=== PATIENT | female | born 1940 | race Caucasian/White ===

== ENCOUNTER 2018-02-10 01:32 | Outpatient (CLI) | payer MEDICARE, BC, SELFPAY ==
[2018-02-10 11:26] LABS: Abs Immature Grans 0.01 k/cumm (0.0-0.09); Absolute Basophil Count 0.04 k/cumm (0.0-0.2); Absolute Eosinophil Count 0.17 k/cumm (0.0-0.7); Absolute Lymphocyte Count 1.03 k/cumm (1.2-3.4); Absolute Monocyte Count 0.48 k/cumm (0.11-0.7); Absolute Neutrophil Count 2.46 k/cumm (1.2-6.7); Eosinophils % 4.1; HCT 38.4 % (36.0-46.0); HGB 12.7 g/dL (12.0-15.5); Immature Grans % 0.2; Lymphocytes % 24.6; Mean Corp. HGB Concentration 33.1 g/dL (32.0-36.0); Mean Corpuscular Hemoglobin 31.8 pg (27.0-33.0); Monocytes % 11.5; Neutrophils % 58.6; Platelet Count 281 x1000/uL (130-400); RBC Distribution Width 12.4 % (11.7-14.6); White Blood Cell Count 4.19 k/cumm (4.4-10.8)
[2018-02-10 11:42] LABS: ALT 16 U/L (12-78); AST 15 U/L (15-37); Albumin 3.9 g/dL (3.4-5.0); Alkaline Phosphatase 80 U/L (46-116); Anion Gap 9.9 mmol/L (3-11); BUN 10 mg/dL (7-18); Bilirubin, Total 0.5 mg/dL (0.2-1.0); CO2 28.1 mmol/L (21.0-32.0); CREATININE 0.74 mg/dL (0.55-1.02); Calcium 9.5 mg/dL (8.5-10.1); Chloride 99 mmol/L (98-107); Glucose 92 mg/dL (70-100); Potassium 3.8 mmol/L (3.5-5.1); Sodium 137 mmol/L (136-145); Total Protein 6.6 g/dL (6.4-8.2)
== END 2018-02-10 01:52 ==
PROVIDERS: PCP Family Medicine; Visit Provider Family Medicine
DX: I10 Essential (primary) hypertension (principal); Z79.899 Other long term (current) drug therapy
CPT/HCPCS: 36415; 80053; 85025

== ENCOUNTER 2019-01-21 04:06 | Outpatient (CLI) | payer MEDICARE, BC, SELFPAY ==
[2019-01-21 10:52] LABS: Absolute Basophil Count 0.04 k/cumm (0.0-0.2); Absolute Eosinophil Count 0.15 k/cumm (0.0-0.7); Absolute Lymphocyte Count 0.94 k/cumm (1.2-3.4); Absolute Monocyte Count 0.57 k/cumm (0.11-0.7); Absolute Neutrophil Count 3.09 k/cumm (1.2-6.7); Basophils % 0.8; Eosinophils % 3.1; HCT 38.3 % (36.0-46.0); HGB 12.8 g/dL (12.0-15.5); Lymphocytes % 19.6; Mean Corp. HGB Concentration 33.4 g/dL (32.0-36.0); Mean Corpuscular Hemoglobin 31.8 pg (27.0-33.0); Mean Platelet Volume 10.9 fL (8.0-11.0); Monocytes % 11.9; Neutrophils % 64.6; Platelet Count 333 x1000/uL (130-400); RBC 4.03 m/cumm (4.00-5.20); RBC Distribution Width 12.3 % (11.7-14.6); White Blood Cell Count 4.79 k/cumm (4.4-10.8)
[2019-01-21 11:28] LABS: ALT 21 U/L (14-59); AST 15 U/L (15-37); Albumin 3.8 g/dL (3.4-5.0); Alkaline Phosphatase 77 U/L (46-116); Anion Gap 8.1 mmol/L (3-11); BUN 9 mg/dL (7-18); Bilirubin, Total 0.4 mg/dL (0.2-1.0); CO2 29.9 mmol/L (21.0-32.0); CREATININE 0.82 mg/dL (0.55-1.02); Calcium 9.3 mg/dL (8.5-10.1); Chloride 101 mmol/L (98-107); Glucose 90 mg/dL (70-100); Potassium 3.9 mmol/L (3.5-5.1); Sodium 139 mmol/L (136-145); Total Protein 6.7 g/dL (6.4-8.2)
== END 2019-01-21 04:26 ==
PROVIDERS: PCP Family Medicine; Visit Provider Family Medicine
DX: I10 Essential (primary) hypertension (principal)
CPT/HCPCS: 36415; 80053; 85025

== ENCOUNTER → 2019-01-27 09:40 | Outpatient (BNVA) | payer MEDICARE, BC, SELFPAY | PROVIDERS: PCP Family Medicine; Visit Provider Psychiatry & Neurology Neurology | DX: G36.0 Neuromyelitis optica [Devic] (principal); G25.81 Restless legs syndrome; I10 Essential (primary) hypertension | CPT/HCPCS: 99214 ==

== ENCOUNTER 2019-02-14 00:37 | Outpatient (CLI) | payer MEDICARE, BC, SELFPAY ==
--- NOTE | 2019-02-14 16:49 | DI.DEXA_ITS ---
INDICATION: . COMPARISON: No exams were available for comparison TECHNIQUE: 2D digital imaging was performed. FINDINGS: Scanogram of the spine is unremarkable. For the left hip,a T-score of -4.5 and Z-score -2.6 would be consistent with osteoporosis and a high fracture risk. For the lumbar spine, a T-score -1.4 and a Z-s core of 1.1 consistent with osteopenia and an increased fracture risk. The left forearm shows a T-sco re -4.4 and a Z-score -1.7 are consistent with osteoporosis and a high fracture risk. IMPRESSION:
== END 2019-02-14 00:57 ==
PROVIDERS: PCP Family Medicine; Visit Provider Family Medicine
DX: M81.0 Age-related osteoporosis without current pathological fracture (principal); M85.88 Other specified disorders of bone density and structure, other site
CPT/HCPCS: 77080

== ENCOUNTER → 2019-03-15 11:57 | Outpatient (BNVA) | payer MEDICARE, BC, SELFPAY | PROVIDERS: PCP Family Medicine; Referring Provider Family Medicine; Visit Provider Psychiatry & Neurology Neurology | DX: G36.0 Neuromyelitis optica [Devic] (principal); G25.81 Restless legs syndrome; I10 Essential (primary) hypertension | CPT/HCPCS: 99213 ==

== ENCOUNTER → 2020-03-13 10:44 | Outpatient (BNVA) | payer MEDICARE, BC, SELFPAY | PROVIDERS: PCP Family Medicine; Referring Provider Family Medicine; Visit Provider Psychiatry & Neurology Neurology | DX: G25.81 Restless legs syndrome (principal); G36.0 Neuromyelitis optica [Devic]; I10 Essential (primary) hypertension | CPT/HCPCS: 99213 ==

== ENCOUNTER 2020-03-15 02:55 | Outpatient (CLI) | payer MEDICARE, BC, SELFPAY ==
[2020-03-15 13:00] LABS: Absolute Basophil Count 0.06 10^3/uL (0.0-0.2); Absolute Eosinophil Count 0.17 10^3/uL (0.0-0.7); Absolute Lymphocyte Count 0.68 10^3/uL (1.2-3.4); Absolute Neutrophil Count 3.52 10^3/uL (1.2-6.7); Basophils % 1.2; Eosinophils % 3.5; HCT 38.9 % (36.0-46.0); HGB 12.9 g/dL (11.2-15.7); Lymphocytes % 14.1; MCH 31.7 pg (27.0-33.0); MCHC 33.2 % (32.0-36.0); MCV 95.6 fL (80-95); MPV 10.9 fL (8.0-11.0); Monocytes % 8.3; Neutrophils % 72.9; Nucleated RBC 0 %; Platelet Count 346 10^3/uL (130-400); RBC 4.07 10^6/uL (3.93-5.22); RDW 12.3 % (11.7-14.6); RDW-SD 42.5 fL; WBC 4.83 10^3/uL (4.4-10.8)
[2020-03-15 13:29] LABS: ALT 16 U/L (14-59); AST 15 U/L (15-37); Albumin 3.9 g/dL (3.4-5.0); Alkaline Phosphatase 85 U/L (46-116); Anion Gap 8.5 mmol/L (3-11); BUN 10 mg/dL (7-18); Bilirubin, Total 0.4 mg/dL (0.2-1.0); CO2 33.5 mmol/L (21.0-32.0); CREATININE 0.74 mg/dL (0.55-1.02); Calcium 9.2 mg/dL (8.5-10.1); Chloride 99 mmol/L (98-107); Ferritin 255 ng/mL (8-252); Glucose 114 mg/dL (74-106); Potassium 3.6 mmol/L (3.5-5.1); Sodium 141 mmol/L (136-145); Total Protein 6.8 g/dL (6.4-8.2)
== END 2020-03-15 03:15 ==
PROVIDERS: PCP Family Medicine; Visit Provider Psychiatry & Neurology Neurology
DX: D50.9 Iron deficiency anemia, unspecified (principal); G36.0 Neuromyelitis optica [Devic]; G25.81 Restless legs syndrome
CPT/HCPCS: 36415; 80053; 82728; 85025

== ENCOUNTER → 2021-04-15 11:06 | Outpatient (BNVA) | payer MEDICARE, BC, SELFPAY | PROVIDERS: PCP Nurse Practitioner Family; Referring Provider Family Medicine; Visit Provider Psychiatry & Neurology Neurology | DX: G37.3 Acute transverse myelitis in demyelinating disease of central nervous system (principal); G25.81 Restless legs syndrome; I10 Essential (primary) hypertension | CPT/HCPCS: 99213 ==

== ENCOUNTER 2021-04-30 03:27 | Outpatient (CLI) | payer MEDICARE, BC, SELFPAY ==
[2021-04-30 12:50] LABS: Abs Immature Grans 0.02 10^3/uL (0.0-0.06); Absolute Basophil Count 0.06 10^3/uL (0.0-0.2); Absolute Eosinophil Count 0.17 10^3/uL (0.0-0.7); Absolute Lymphocyte Count 0.76 10^3/uL (1.2-3.4); Absolute Monocyte Count 0.56 10^3/uL (0.1-0.8); Absolute Neutrophil Count 4.17 10^3/uL (1.2-6.7); HCT 37.8 % (36.0-46.0); HGB 12.2 g/dL (11.2-15.7); Immature Grans % 0.3; Lymphocytes % 13.2; MCH 31.9 pg (27.0-33.0); MCHC 32.3 % (32.0-36.0); MCV 98.7 fL (80-95); MPV 10.7 fL (8.0-11.0); Monocytes % 9.8; Neutrophils % 72.7; Nucleated RBC 0 %; Platelet Count 322 10^3/uL (130-400); RBC 3.83 10^6/uL (3.93-5.22); RDW 12.1 % (11.7-14.6); RDW-SD 43.8 fL; WBC 5.74 10^3/uL (4.4-10.8)
[2021-04-30 13:06] LABS: ALT 22 U/L (14-59); AST 16 U/L (15-37); Albumin 3.9 g/dL (3.4-5.0); Alkaline Phosphatase 83 U/L (46-116); Anion Gap 9.6 mmol/L (3-11); BUN 9 mg/dL (7-18); Bilirubin, Total 0.4 mg/dL (0.2-1.0); CO2 29.4 mmol/L (21.0-32.0); CREATININE 0.8 mg/dL (0.55-1.02); Calcium 9.2 mg/dL (8.5-10.1); Chloride 100 mmol/L (98-107); Glucose 106 mg/dL (74-106); Potassium 3.6 mmol/L (3.5-5.1); Sodium 139 mmol/L (136-145); Total Protein 6.7 g/dL (6.4-8.2)
== END 2021-04-30 03:28 | disposition home or self-care (01) ==
LOC: LOS 03:27
PROVIDERS: PCP Nurse Practitioner Family; Visit Provider Psychiatry & Neurology Neurology
DX: G37.3 Acute transverse myelitis in demyelinating disease of central nervous system; H61.21 Impacted cerumen, right ear
CPT/HCPCS: 36415; 80053; 85025

== ENCOUNTER → 2022-04-21 11:15 | Outpatient (BNVA) | payer MEDICARE, BC, SELFPAY | PROVIDERS: PCP Nurse Practitioner Family; Referring Provider Nurse Practitioner Family; Visit Provider Psychiatry & Neurology Neurology | DX: G36.0 Neuromyelitis optica [Devic] (principal); G25.81 Restless legs syndrome; M54.32 Sciatica, left side | CPT/HCPCS: 99214 ==

== ENCOUNTER 2022-04-25 01:10 | Outpatient (CLI) | payer MEDICARE, BC, SELFPAY ==
[2022-04-25 10:29] LABS: Abs Immature Grans 0.01 10^3/uL (0.0-0.06); Absolute Basophil Count 0.05 10^3/uL (0.0-0.2); Absolute Eosinophil Count 0.13 10^3/uL (0.0-0.7); Absolute Lymphocyte Count 0.88 10^3/uL (1.2-3.4); Absolute Monocyte Count 0.59 10^3/uL (0.1-0.8); Absolute Neutrophil Count 3.69 10^3/uL (1.2-6.7); Basophils % 0.9; Eosinophils % 2.4; HCT 36.8 % (36.0-46.0); HGB 12.2 g/dL (11.2-15.7); Immature Grans % 0.2; Lymphocytes % 16.4; MCH 30.7 pg (27.0-33.0); MCHC 33.2 % (32.0-36.0); MCV 93 fL (80-95); MPV 10.1 fL (8.0-11.0); Neutrophils % 69.1; Platelet Count 319 10^3/uL (130-400); RBC 3.97 10^6/uL (3.93-5.22); RDW 12.3 % (11.7-14.6); RDW-SD 42.5 fL; WBC 5.35 10^3/uL (4.4-10.8)
[2022-04-25 10:43] LABS: ALT 17 U/L (14-59); AST 15 U/L (15-37); Albumin 3.8 g/dL (3.4-5.0); Alkaline Phosphatase 91 U/L (46-116); Anion Gap 6.4 mmol/L (3-11); BUN 13 mg/dL (7-18); Bilirubin, Total 0.3 mg/dL (0.2-1.0); CO2 29.6 mmol/L (21.0-32.0); CREATININE 0.7 mg/dL (0.55-1.02); Calcium 9.1 mg/dL (8.5-10.1); Chloride 96 mmol/L (98-107); Estimated GFR 87.92 (mL/min/1.73m2); Glucose 93 mg/dL (74-106); Potassium 3.3 mmol/L (3.5-5.1); Sodium 132 mmol/L (136-145); Total Protein 6.9 g/dL (6.4-8.2)
== END 2022-04-25 01:11 | disposition home or self-care (01) ==
LOC: LOS 01:10
PROVIDERS: PCP Nurse Practitioner Family; Visit Provider Psychiatry & Neurology Neurology
DX: G37.3 Acute transverse myelitis in demyelinating disease of central nervous system (principal); M54.32 Sciatica, left side
CPT/HCPCS: 36415; 80053; 85025

== ENCOUNTER 2022-05-05 04:20 | Outpatient (CLI) | payer MEDICARE, BC, SELFPAY ==
[2022-05-05 12:42] LABS: Anion Gap 8.8 mmol/L (3-11); BUN 13 mg/dL (7-18); CO2 26.2 mmol/L (21.0-32.0); CREATININE 0.7 mg/dL (0.55-1.02); Chloride 102 mmol/L (98-107); Estimated GFR 87.92 (mL/min/1.73m2); Glucose 83 mg/dL (74-106); Potassium 4.1 mmol/L (3.5-5.1); Sodium 137 mmol/L (136-145)
== END 2022-05-05 04:21 | disposition home or self-care (01) ==
LOC: LOS 04:20
PROVIDERS: PCP Nurse Practitioner Family; Visit Provider Nurse Practitioner Family
DX: E87.1 Hypo-osmolality and hyponatremia (principal)
CPT/HCPCS: 36415; 80048

== ENCOUNTER → 2023-04-15 10:37 | Outpatient (BNVA) | payer MEDICARE, BC, SELFPAY | PROVIDERS: PCP Nurse Practitioner Family; Referring Provider Nurse Practitioner Family; Visit Provider Psychiatry & Neurology Neurology | DX: G37.3 Acute transverse myelitis in demyelinating disease of central nervous system (principal); G25.81 Restless legs syndrome; M54.32 Sciatica, left side | CPT/HCPCS: 99213 ==

== ENCOUNTER 2023-06-03 04:45 | Outpatient (CLI) | payer MEDICARE, BC, SELFPAY ==
[2023-06-03 11:29] LABS: Abs Immature Grans 0.02 10^3/uL (0.0-0.06); Absolute Basophil Count 0.04 10^3/uL (0.0-0.2); Absolute Eosinophil Count 0.13 10^3/uL (0.0-0.7); Absolute Lymphocyte Count 0.78 10^3/uL (1.2-3.4); Absolute Monocyte Count 0.61 10^3/uL (0.1-0.8); Absolute Neutrophil Count 4.94 10^3/uL (1.2-6.7); Basophils % 0.6; HCT 35.3 % (36.0-46.0); Immature Grans % 0.3; MCH 32.3 pg (27.0-33.0); MCV 95 fL (80-95); MPV 10.3 fL (8.0-11.0); Monocytes % 9.4; Neutrophils % 75.7; Platelet Count 313 10^3/uL (130-400); RBC 3.72 10^6/uL (3.93-5.22); RDW 12.3 % (11.7-14.6); WBC 6.52 10^3/uL (4.4-10.8)
[2023-06-03 12:01] LABS: ALT 22 U/L (14-59); AST 15 U/L (15-37); Albumin 3.6 g/dL (3.4-5.0); Alkaline Phosphatase 77 U/L (46-116); Anion Gap 6.2 mmol/L (3-11); BUN 14 mg/dL (7-18); Bilirubin, Total 0.4 mg/dL (0.2-1.0); CO2 31.8 mmol/L (21.0-32.0); CREATININE 0.8 mg/dL (0.55-1.02); Calcium 9.4 mg/dL (8.5-10.1); Chloride 97 mmol/L (98-107); Estimated GFR 73.98 (mL/min/1.73m2); Glucose 93 mg/dL (74-106); Potassium 3.4 mmol/L (3.5-5.1); Sodium 135 mmol/L (136-145); Total Protein 6.8 g/dL (6.4-8.2)
== END 2023-06-03 04:46 | disposition home or self-care (01) ==
LOC: LOS 04:45
PROVIDERS: PCP Nurse Practitioner Family; Visit Provider Psychiatry & Neurology Neurology
DX: G37.3 Acute transverse myelitis in demyelinating disease of central nervous system (principal); G25.81 Restless legs syndrome; R20.2 Paresthesia of skin
CPT/HCPCS: 36415; 80053; 85025

== ENCOUNTER 2023-06-28 00:55 | Inpatient (IN) | payer MEDICARE, BC, SELFPAY ==
--- NOTE | 2023-06-28 00:45 | DI.RAD_ITS ---
Exam(s) CT PELVIC WO XR PELVIS AP XR FEMUR RT EXAM: CT PELVIC WO and XR pelvis AP and XR femur RT CLINICAL HISTORY: fall; right hip pain; concern pelvic fract on xr. TECHNIQUE: Imaging Protocol: Axial computed tomography images with coronal and sagittal reformatted images were created and reviewed. Five images were obtained. COMPARISON: DX XR DEXA BONE DENSITY W/WO LILIANA from 02/14/2019 FINDINGS: XR pelvis AP and XR femur RT: There is a fracture of the medial aspect of this right superior pubic ramus. There fracture is mildl y displaced. There is also fracture involving the right inferior pubic ramus which does not appear t o be displaced. There is a fracture of the right sacrum. This can be appreciated on the 1st image o f the right femur series with disruption of a right arcuate line. The pubic symphysis is intact. Th ere are degenerative changes seen at the sacroiliac joints. Degenerative changes are seen in the low er lumbar spine. The hips are well maintained. No fracture or dislocation is seen in the hips. The calcification in the pelvis likely reflects a degenerating uterine fibroid. Bones: There are degenerative changes seen in the lumbar spine. There is a nondisplaced fracture th rough the right sacrum. (Series 3, images 212-269). The bones are osteopenic. There is a comminute d displaced fracture of the right superior pubic ramus. There is a comminuted mildly displaced fract ure involving the right inferior pubic ramus. There is no widening of the symphysis pubis or the sac roiliac joints. There is a compression deformity of the L4 vertebral body of indeterminate age. Gra de 1 anterolisthesis of L5 on S1 is noted. Soft Tissues: There is a calcified uterine fibroid. There is diverticulosis seen in the colon, but n o evidence of acute diverticulitis. Vascular calcification of the abdominal aorta is noted. There i s a hematoma in the soft tissues associated with the right pelvic fracture. The urinary bladder appe ars intact. IMPRESSION: 1. Fractures involving the right superior and inferior pubic ramus with associated adjacent hematoma. 2. Nondisplaced fracture involving the right sacral ala. No widening of the sacroiliac joints is not ed. 3. Old compression deformity of L4 vertebral body which can be seen on the DEXA scan from 02/14/2019. RADIATION DOSE DELIVERED: 305.91mGy.cm Total DLP 305.91mGy.cmTotal DLP DATA REPOSITORY: All CT scans at this facility are submitted to the National Radiology Data Registry (NRDR) Dose Index Registry (DIR) with the [employer] ([employer]). RADIATION OPTIMIZATION: All CT scans at this facility use at least one of these dose optimization te chniques: automated exposure control; mA and/or kV adjustment per patient size (includes targeted exa ms where dose is matched to clinical indication); or iterative reconstruction.
--- NOTE | 2023-06-28 00:45 | DI.RAD_ITS ---
Exam(s) XR SHOULDER RT COMPLETE 2+V EXAM: XR SHOULDER RT COMPLETE 2+V CLINICAL HISTORY: fall shoulder pain. TECHNIQUE: 2D digital imaging was performed of the right shoulder. Three images were obtained. AP, Grashey and Y views were obtained. COMPARISON: No exams were available for comparison FINDINGS: BONES: No acute fracture is present. No bony destructive lesion is seen. JOINTS: No dislocation present. Mild degenerative changes are seen at the acromioclavicular joint. SOFT TISSUE: The visualized lungs are clear. IMPRESSION: No acute fracture or dislocation. DATA REPOSITORY: RADIATION DOSE DELIVERED:
[2023-06-28 00:57] VITALS: BP 148/80; PULSE 76; RESP 16; TEMP 36.2; O2SAT 94
--- NOTE | 2023-06-28 01:01 | ED.GENADUL_ITS ---
HPI General Date/Time Provider Initiated Documentation: 06/28/23 00:58 . HPI Narrative: 83-year-old female presents after mechanical trip and fall at home onto her right side hitting right hip and right shoulder. No head injury no loss of conscious. Pain to right hip unable to bear weight. Related Data Home Medications Medication Instructions Recorded Confirmed aspirin 81 mg tablet,delayed 162 mg PO DAILY 10/18/12 06/28/23 release (Aspir-) vitamin B complex 1 cap PO DAILY 10/18/12 06/28/23 cholecalciferol (vitamin D3) 25 25 mcg PO DAILY 01/09/21 06/28/23 mcg (1,000 unit) capsule metoprolol tartrate 50 mg tablet 50 mg PO DAILY #90 tab-caps 08/13/22 06/28/23 hydrochlorothiazide 12.5 mg capsule 12.5 mg PO DAILY #90 tab-caps 10/01/22 06/28/23 calcium carbonate 600 mg calcium 600 mg PO DAILY 04/15/23 06/28/23 (1,500 mg) tablet (Calcium) gabapentin 600 mg tablet See Rx Instructions .Route 04/15/23 06/28/23 .COMPLEX #270 tabs mycophenolate mofetil 500 mg tablet 1,000 mg (2 x 500 mg) PO BID #360 04/15/23 06/28/23 tab-caps Previous Rx's Medication Instructions Recorded metoprolol tartrate 50 mg tablet 50 mg PO DAILY #90 tab-caps 08/13/22 hydrochlorothiazide 12.5 mg capsule 12.5 mg PO DAILY #90 tab-caps 10/01/22 gabapentin 600 mg tablet See Rx Instructions .Route 04/15/23 .COMPLEX #270 tabs mycophenolate mofetil 500 mg tablet 1,000 mg (2 x 500 mg) PO BID #360 04/15/23 tab-caps Allergies Allergy/AdvReac Type Severity Reaction Status Date / Time No Known Allergies Allergy Verified 06/28/23 01:05 Review of Systems Narrative: Review of Systems Constitutional: negative Eyes: negative ENT: negative Cardiovascular: negative Respiratory: negative Gastrointestinal: negative : negative Musculoskeletal: Right hip pain Skin: negative Neurologic: negative Psych: negative Exam Narrative Exam Narrative: Physical Examination General: alert, awake, cooperative, resting comfortably, no acute distress HEENT: normocephalic, atraumatic; PERRL, EOM intact, conjunctiva normal; no nasal discharge; moist mucous membranes, oral and pharyngeal mucosa normal, tolerating secretions Neck: supple, trachea midline; full ROM Chest: normal to inspection Respiratory: normal respiratory effort, speaking in full sentences Skin: no lesions, rashes or trauma appreciated Neuro: AAOx3, normal speech, moving all extremities Extremities: Unable to fully lift right leg off of bed due to discomfort and hip, soft compartments, warm well-perfused extremity, sensate, DP pulse intact range of motion toes ankle knee intact; range of motion of right shoulder intact no palpable deformity crepitus or step-off Psych: Appropriate mood and affect Medical Decision Making 83-year-old female presents after mechanical fall from standing, fell onto her right side, pain to right hip, unable to lift right leg off of bed due to discomfort in right hip, soft compartments warm well-perfused extremity, DP pulse intact sensate limb, range of motion in toes foot ankle knee intact, range of motion of right shoulder intact, hemodynamically stable neurologically intact. No signs of cranial injury. Concern for proximal femur fracture versus pelvic fracture versus contusion. Will obtain screening x-ray pelvis x-ray femur x-ray right shoulder. Patient denies needing any analgesia at this time. Disposition pending results and reassessment 3: 47 evidence of superior and inferior pubic rami fracture right side. Patient remained hemodynamically stable. Will be admitted for pain control and PT evaluation. 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 Paternal Grandmother , 30? Diabetes Son Depression Daughter Diabetes Daughter Depression Sister No problems noted. Social History Smoking/Tobacco Use Status: Never Second Hand Exposure: Yes Smoking risk assessment performed?: Yes Alcohol Intake: current Alcohol type: beer Drug use: Never Substance use type: does not use Caregiver/Support person: No Household members: spouse Housing: house Communication Needs: None Do you need help understanding health information?: Rarely Pets and animals: No Sexually active: No Do you think of yourself as: straight/heterosexual Current gender identity: female What is your relationship status?: How often do you talk on the phone with friends or family?: three or more times per week How often do you get together with friends or relatives?: decline to answer How often do you attend yazdanism or advent services?: 1-3 times per year Do you belong to any clubs or organized social groups?: no Panel score (0-1 are the most socially isolated patients): 2 What type of physical activity do you participate in: none Frequency: does not exercise Sunni/Caodaism: Orthodoxy Special sunni needs: No Seatbelt use: always Drive intox or ride w/intox log driver: No Discharge Plan Disposition Patient Disposition: Admit to [facility] Condition: Stable Discharge Details Chief Complaint: Orthopedic Clinical Impression: Fracture of pubic ramus Primary Care Provider: Kurt Adam ED Provider: Colt Mims Home Meds and New Rx's Prescriptions: No Action hydrochlorothiazide 12.5 mg capsule 12.5 mg PO DAILY Qty: 90 4RF Hold Instructions: d/t electrolyte imbalances. Recheck 05/05/22. AT cholecalciferol (vitamin D3) 25 mcg (1,000 unit) capsule 25 mcg PO DAILY calcium carbonate [Calcium 600] 600 mg calcium (1,500 mg) tablet 600 mg PO DAILY mycophenolate mofetil 500 mg tablet 1,000 mg PO BID Qty: 360 3RF gabapentin 600 mg tablet See Rx Instructions .ROUTE .COMPLEX Qty: 270 3RF Dose Instruction: TAKE 1 TABLET THREE TIMES A DAY Rx Instructions: TAKE 1 TABLET THREE TIMES A DAY aspirin [Aspir-81] 81 MG tablet,delayed release (DR/EC) 162 mg PO DAILY Rx Instructions: 2 TABS DAILY vitamin B complex 1 EACH capsule 1 cap PO DAILY metoprolol tartrate 50 mg tablet 50 mg PO DAILY Qty: 90 3RF Rx Instructions: Replaces Atenolol
--- NOTE | 2023-06-28 01:59 | DI.VRAD_ITS ---
PROCEDURE INFORMATION: Exam: XR Right Shoulder Exam date and time: 06/28/2023 1:33 AM Age: 83 years old Clinical indication: Injury or trauma; Fall; Blunt trauma (contusions or hematomas); Shoulder; Right TECHNIQUE: Imaging protocol: Radiologic exam of the right shoulder. Views: 2 or more views. COMPARISON: No relevant prior studies available. FINDINGS: Bones/joints: There is no evidence of fracture. There is no evidence of dislocation. The acromioclavicular joint is normal. The subacromial joint space is well-preserved. The glenohumeral joint is normal. No joint effusion is present. Soft tissues: There are no soft tissue swelling or calcifications. IMPRESSION: Normal shoulder radiographs. Dictated and Authenticated by: Buck Talley MD. Ordering:JOVANY Gregory MD
--- NOTE | 2023-06-28 02:11 | DI.VRAD_ITS ---
PROCEDURE INFORMATION: Exam: XR Right Femur Exam date and time: 06/28/2023 1:22 AM Age: 83 years old Clinical indication: Injury or trauma; Fall; Blunt trauma; Hip; Right TECHNIQUE: Imaging protocol: Radiologic exam of the right femur. Views: 2 views. COMPARISON: CR XR PELVIS AP 06/28/2023 1:19 AM FINDINGS: Bones/joints: Bone mineralization is age-appropriate. There is no evidence of fracture. No evidence of dislocation. The joint spaces are adequately preserved; no significant degenerative narrowing and no bony erosion seen. Soft tissues: No radiopaque foreign body present. There is soft tissue swelling present. IMPRESSION: 1. No acute osseous abnormality. 2. There is soft tissue swelling present. Dictated and Authenticated by: Buck Talley MD. Ordering:JOVANY Gregory MD
--- NOTE | 2023-06-28 02:13 | DI.VRAD_ITS ---
Addendum created by Buck Talley MD on 06/28/2023 3:22:36 AM EST: Is a comminuted fracture of the inferior ramus of the right ischium and the right symphysis pubis. Initial report created on 06/28/2023 2:12:34 AM EST: PROCEDURE INFORMATION: Exam: XR Pelvis Exam date and time: 06/28/2023 1:19 AM Age: 83 years old Clinical indication: Injury or trauma; Fall; Blunt trauma (contusions or hematomas); Right; Hip TECHNIQUE: Imaging protocol: Radiologic exam of the pelvis. Views: 1 or 2 view. COMPARISON: No relevant prior studies available. FINDINGS: Bones/joints: There are degenerative changes in lumbosacral spine. There are degenerative changes of the sacroiliac joints bilaterally. There is no evidence of fracture or dislocation. The right hip joint is normal. The left hip joint is normal. The sacroiliac joints are normal. The visualized portions of the lower lumbar spine are normal. Soft tissues: There are no soft tissue calcifications or masses. Organs: Calcification within the mid pelvis may represent a fibroid. IMPRESSION: 1. Calcification within the mid pelvis may represent a fibroid. 2. No evidence of acute fracture or dislocation. 3. Degenerative changes sacroiliac joints and lumbar spine. Dictated and Authenticated by: Buck Talley MD. Ordering:JOVANY Gregory MD
[2023-06-28 02:45] LABS: Absolute Basophil Count 0.03 10^3/uL (0.0-0.2); Absolute Eosinophil Count 0.02 10^3/uL (0.0-0.7); Absolute Lymphocyte Count 0.41 10^3/uL (1.2-3.4); Absolute Monocyte Count 0.92 10^3/uL (0.1-0.8); Absolute Neutrophil Count 15.48 10^3/uL (1.2-6.7); Basophils % 0.2; Eosinophils % 0.1; HCT 33.3 % (36.0-46.0); HGB 11.5 g/dL (11.2-15.7); Immature Grans % 0.6; Lymphocytes % 2.4; MCHC 34.5 % (32.0-36.0); MCV 93 fL (80-95); MPV 10.2 fL (8.0-11.0); Monocytes % 5.4; Neutrophils % 91.3; Platelet Count 271 10^3/uL (130-400); RBC 3.59 10^6/uL (3.93-5.22); RDW 11.9 % (11.7-14.6); RDW-SD 40.5 fL; WBC 16.95 10^3/uL (4.4-10.8)
[2023-06-28 02:53] LABS: ALT 21 U/L (14-59); AST 22 U/L (15-37); Albumin 3.7 g/dL (3.4-5.0); Alkaline Phosphatase 68 U/L (46-116); Anion Gap 13.8 mmol/L (3-11); BUN 13 mg/dL (7-18); Bilirubin, Total 0.5 mg/dL (0.2-1.0); CO2 24.2 mmol/L (21.0-32.0); CREATININE 0.6 mg/dL (0.55-1.02); Calcium 9.4 mg/dL (8.5-10.1); Chloride 95 mmol/L (98-107); Estimated GFR 90.12 (mL/min/1.73m2); Glucose 121 mg/dL (74-106); Potassium 3.1 mmol/L (3.5-5.1); Sodium 133 mmol/L (136-145); Total Protein 6.5 g/dL (6.4-8.2)
--- NOTE | 2023-06-28 03:27 | DI.VRAD_ITS ---
Addendum created by Buck Talley MD on 06/28/2023 3:31:01 AM EST: THIS REPORT CONTAINS FINDINGS THAT MAY BE CRITICAL TO PATIENT CARE. The findings were verbally communicated via telephone conference with Colt Mims at 3:28 AM EST on 06/28/2023. The findings were acknowledged and understood. Initial report created on 06/28/2023 3:26:39 AM EST: PROCEDURE INFORMATION: Exam: CT Pelvis Without Contrast; Skeletal Exam date and time: 06/28/2023 2:54 AM Age: 83 years old Clinical indication: Injury or trauma; Fall; Blunt trauma (contusions or hematomas); Right; Hip TECHNIQUE: Imaging protocol: Computed tomography of the pelvis without contrast. Exam focused on the skeleton. COMPARISON: CR XR PELVIS AP 06/28/2023 1:19 AM FINDINGS: Kidneys and ureters: The kidneys are normal. Stomach and bowel: There is no evidence of intestinal obstruction. No evidence of bowel obstruction. Appendix: The appendix appears unremarkable. Urinary bladder: The bladder is normal. Reproductive: Calcification within the uterus consistent with degenerated uterine fibroid. The uterus is normal. The ovaries are normal. Intraperitoneal space: There is no free intraperitoneal air. There is no evidence of free intraperitoneal or pelvic fluid. Lymph nodes: There is no evidence of lymphadenopathy. Bones/joints: There is a fracture of the right pubis, the very superior ramus and the distal right inferior ramus. The left and right femurs are intact. Compression fracture of L4 age indeterminate. Anterolisthesis of L5 on S1. Soft tissues: There is small hematoma present at the anterior inferior aspect of the pelvis. IMPRESSION: 1. There is a fracture of the right pubis, the right superior ramus and the distal very inferior ramus. 2. There is small hematoma present at the anterior inferior aspect of the pelvis. Dictated and Authenticated by: Buck Talley MD. Ordering:P.DISST Prasanna Gregory MD
[2023-06-28 03:48] LABS: PTT Activated 21.9 sec (23.6-32.8); Prothrombin Time 9.6 sec (9.1-11.1)
--- NOTE | 2023-06-28 04:06 | W.PM.HP.N ---
Date of service: 06/28/23 Time of Service: 04:06 Assessment and Plan Assessment and plan (1) Fracture of pubic ramus: Start date: 06/28/23 Start time: 04:25 Status: Acute Assessment and plan: The patient comes in w/ a fall without any loss of consciousness but has been unable to ambulate due to her pain. On exam she has a slight bruising of the R hip without any pelvic instability. A Pelvis X-ray and CT pelvis shows R superior pubic rami fracture. She will need to be treated conservatively with pain management and early physical therapy. I suspect this is non-operative; however if the patient does not improve or her symptoms become worse she could benefit from Ortho evaluation. -Cont w/ non-operative management to include pain control and early PT -Pain management w/ scheduled Tylenol and prn Toradol for breakthrough pain -Consult physical therapy in the AM -Consider Ortho evaluation if she does not improve or symptoms become worse -Consider outpatient tx for osteoporosis as this would qualify as a fragility fracture -Consider outpatient baseline DEXA evaluation DNR/DNI Surrogate Decision Maker: Nick () [phone] (2) Leukocytosis: Status: Acute Assessment and plan: Suspect this is most likely reactionary due to current fall. There is low suspicion for any infectious etiology. She has no active symptoms or suspected nidus of infection. 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 -Cont w/ Mycophenolate 1000mg bid (5) Hypertension: Status: Acute Assessment and plan: -Cont w/ Metoprolol 50mg daily -Hold HCTZ 12.5mg daily d/t hypokalemia and restart at a later time -Use IV Hydralazine for prn >150/90 Qualifiers: Hypertension type: essential hypertension Qualified Code(s): I10 - Essential (primary) hypertension (6) Sciatica: Status: Acute Assessment and plan: -Cont with Neurontin 600mg tid Qualifiers: Laterality: left Qualified Code(s): M54.32 - Sciatica, left side (7) Restless legs syndrome: Status: Acute Assessment and plan: -Cont w/ Neurontin 600mg tid History of Present Illness History of Present Illness Chief Complaint: R hip pain Narrative: The patient is a 83 y/o C F w/ PMH HTN and transverse myelitis (T4-6), in 2010, 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 She did not trip nor did she she have any loss of consciousness. She denied any symptoms of pre-syncope, vertigo, chest pain, palpitations or dyspnea which may have resulted in her fall. She fell on her right side to include the shoulder and hip. She did not hit her head. She was able to get up with the assistance of her but did have excruciating pain on the lateral side of the right hip. Since she was unable to tolerate any weight bearing activity she came in for further evaluation. She describes the pain as a constant achy pain without any radiating to the ipsilateral groin or her lower extremity. Her pain does become worse w/ movement. She has no fever, chills or night sweats. She denies any chest pain, palpitations, coughing, wheezing or dyspnea. She is able to move her extremities and does not have any new paresthesias. She has no expressive aphasia or dysarthria. At baseline she is able to ambulate on her own without the use of a cane/walker. Review of Systems Constitutional Constitutional: Denies fatigue, Denies fever(s), Denies headache(s), Denies night sweats and Denies weight loss Eyes Eyes: Denies blurry vision, Denies change in vision and Denies loss of vision ENT Ears, Nose, Mouth, and Throat: Denies dysphagia, Denies vertigo, Denies dizziness, Denies headache(s), Denies nasal trauma, Denies tinnitus, Denies sinus pain and Denies sore throat Cardiovascular Cardiovascular: Denies chest pain, Denies chest pain with activity, Denies rapid heart rate, Denies irregular heart rhythm and Denies dyspnea on exertion Respiratory Respiratory: Denies chest congestion, Denies cough, Denies dyspnea on exertion and Denies wheezing Gastrointestinal Gastrointestinal: Denies melena, Denies bloating, Denies hematochezia, Denies dysphagia, Denies diarrhea, Reports nausea and Reports vomiting Genitourinary Genitourinary: Denies hematuria and Denies dysuria Musculoskeletal Musculoskeletal: Denies myalgias, Denies arthralgias, Denies numbness and Denies tingling Neurologic Neurologic: Denies abnormal speech, Denies vertigo, Denies dizziness, Denies headache(s), Denies loss of vision, Denies numbness, Denies sensory deficit and Denies tingling Endocrine Endocrine: Denies fatigue Allergic/Immunologic Allergic/Immunologic: Denies wheezing 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) Other causes of myelitis (03/19/11) thoracic myelitis on Mofetil Family hx of colon cancer (12/07/13) mom at 83 Nausea without vomiting most likely secondary to medication Osteoporosis Neuromyelitis optica Surgical History History of tonsillectomy and adenoidectomy History of bilateral ligation of fallopian tubes Ligation of fallopian tube Colonoscopy - IV Sedation 2004, 2009 Family History Mother , 83 Colon cancer 70's Essential hypertension Heart disease Stroke Father , 79 Diabetes Heart disease Sister , 77 Essential hypertension Heart disease Maternal Grandfather Cancer Paternal Grandfather Heart disease Maternal Grandmother No problems noted. Paternal Grandmother , 30? Diabetes Son Depression Daughter Diabetes Daughter Depression Sister No problems noted. Social History Smoking/Tobacco Use Status: Never Second Hand Exposure: Yes Smoking risk assessment performed?: Yes Alcohol Intake: current Alcohol type: beer Drug use: Never Substance use type: does not use Caregiver/Support person: No Household members: spouse Housing: house Communication Needs: None Do you need help understanding health information?: Rarely Pets and animals: No Sexually active: No Do you think of yourself as: straight/heterosexual Current gender identity: female What is your relationship status?: How often do you talk on the phone with friends or family?: three or more times per week How often do you get together with friends or relatives?: decline to answer How often do you attend restoration or yazidi services?: 1-3 times per year Do you belong to any clubs or organized social groups?: no Panel score (0-1 are the most socially isolated patients): 2 What type of physical activity do you participate in: none Frequency: does not exercise Sunni/Gnosticist: Holiness Special sunni needs: No Seatbelt use: always Drive intox or ride w/intox horse and wagon driver: No Meds Allergies and Home Medications Allergies Allergy/AdvReac Type Severity Reaction Status Date / Time No Known Allergies Allergy Verified 06/28/23 01:05 Home Medications Medication Instructions Recorded Confirmed Type aspirin 81 mg tablet,delayed 162 mg PO DAILY 10/18/12 06/28/23 History release (Aspir-) vitamin B complex 1 cap PO DAILY 10/18/12 06/28/23 History cholecalciferol (vitamin D3) 25 25 mcg PO DAILY 01/09/21 06/28/23 History mcg (1,000 unit) capsule metoprolol tartrate 50 mg tablet 50 mg PO DAILY #90 tab-caps 08/13/22 06/28/23 Rx hydrochlorothiazide 12.5 mg capsule 12.5 mg PO DAILY #90 tab-caps 10/01/22 06/28/23 Rx calcium carbonate 600 mg calcium 600 mg PO DAILY 04/15/23 06/28/23 History (1,500 mg) tablet (Calcium) gabapentin 600 mg tablet See Rx Instructions .Route 04/15/23 06/28/23 Rx .COMPLEX #270 tabs mycophenolate mofetil 500 mg tablet 1,000 mg (2 x 500 mg) PO BID #360 04/15/23 06/28/23 Rx tab-caps Exam Const General: cooperative, healthy appearing, comfortable and no acute distress Nutritional Appearance: well nourished Orientation: alert, awake and oriented x3 HENMT Head: normal to inspection, normocephalic, atraumatic and no abrasions Ears: hearing grossly normal bilaterally and external ears normal General nose exam: external nose normal Face and sinus: normal facial exam Mouth: oral mucosae normal Teeth and gingiva: bridge Eyes General: appearance normal, both eyes and all related structures Pupils: PERRL EOM: EOM intact bilaterally Neck Neck: normal visual inspection, full ROM and no lymphadenopathy Lymphatic: no lymphadenopathy noted Chest Chest: normal inspection of the chest Resp Effort & Inspection: normal respiratory effort and able to speak in complete sentences Auscultation: clear to auscultation bilaterally Cardio Rate: regular rate Rhythm: regular rhythm Heart Sounds: S1 normal and S2 normal GI Inspection: normal to inspection Palpation: soft Percussion: normal to percussion Auscultation: normal bowel sounds Back/Spine/Pelvis Pelvis: no pain with lateral compression Other: She has no pain on lateral palpation of her pelvis She does not have any pelvic instability on rocking her pelvis Skin General skin exam: ecchymosis (small area noted on right hip and shoulder) Neuro General: patient alert, patient awake, patient oriented x3, moves all extremities and CN's II-XI intact bilaterally Speech: speech normal Extrem General: normal to inspection Psych Appearance: grossly normal Mental Status: mental status grossly normal Speech and Movement: speech and movement normal Mood: congruent mood Affect: normal affect Attitude: cooperative Results Imaging Abdominal x-ray: report reviewed and image reviewed CT scan - pelvis: report reviewed and image reviewed Labs 06/28/23 02:34 06/28/23 02:34 Labs: Laboratory Results - last 24 hr 06/28/23 06/28/23 02:34 03:15 WBC 16.95 H RBC 3.59 L Hgb 11.5 Hct 33.3 L MCV 93 MCH 32.0 MCHC 34.5 RDW 11.9 Plt Count 271 MPV 10.2 Immature Gran % 0.6 Neutrophils % 91.3 Lymphocytes % 2.4 Monocytes % 5.4 Eosinophils % 0.1 Basophils % 0.2 Nucleated RBC % 0.0 Absolute Neutrophils 15.48 H Absolute Lymphocytes 0.41 L Absolute Monocytes 0.92 H Absolute Eosinophils 0.02 Absolute Basophils 0.03 PT 9.6 INR 1.0 APTT 21.9 L Sodium 133 L Potassium 3.1 L Chloride 95 L Carbon Dioxide 24.2 Anion Gap 13.8 H BUN 13 Creatinine 0.6 Est GFR (CKD-EPI 2020) 90.12 Glucose 121 H Calcium 9.4 Total Bilirubin 0.5 AST 22 ALT 21 Alkaline Phosphatase 68 Total Protein 6.5 Albumin 3.7 Last Vital Signs Temp 36.2 C L 06/28/23 00:57 Pulse 76 06/28/23 00:57 Resp 16 06/28/23 00:57 BP 148/80 H 06/28/23 00:57 Pulse Ox 94 06/28/23 00:57 Time Spent Time spent with Patient: 55-74 minutes Time was spent: preparing to see the patient(eg.review tests), obtaining and/or reviewing separately otained hiistory, ordering medications,tests, procedures and indepentently interpreting results
[2023-06-28] MEDS: Normal Saline Flush 10 ML SYR IVP ×3 (05:32→12:36)
[2023-06-28 05:33] VITALS: BP 134/68; PULSE 80; RESP 18; TEMP 37.4; O2SAT 95
[2023-06-28] MEDS: Normal Saline 1,000 ML 100 ML IV (05:33)
[2023-06-28] MEDS: Acetaminophen 325 MG TAB 650 MG PO ×2 (05:45→12:35)
[2023-06-28] MEDS: Potassium Chloride Liquid 20 MEQ PKT 40 MEQ PO (05:45)
[2023-06-28 06:04] VITALS: BP 134/68; PULSE 80; RESP 18; TEMP 37.4; O2SAT 95
[2023-06-28 07:42] VITALS: BP 128/67; PULSE 79; RESP 17; TEMP 36.7; O2SAT 97
--- NOTE | 2023-06-28 08:11 | IN_ITS ---
PT Notes Visit Reasons: pelvic fracture Inpatient Physical Therapy Evaluation Date: June 28, 2023 Referring Doctor: Andrea Carlisle PT Orders: PT CONSULT: Nonurgent Precautions: Fall precautions, standard, activity as tolerated Patient Profile/Admitting Diagnosis: The 83-year-old patient comes in w/ a fall without any loss of consciousness but has been unable to ambulate due to her pain. On exam she has a slight bruising of the R hip without any pelvic instability. A Pelvis X-ray and CT pelvis shows R superior pubic rami fracture. 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 Current Functional Limitations: Self-care ADLs, ambulation, bed mobility Equipment Owned/DME: Front wheel walker, multiple single-point canes Subjective: Daylin states that her back is sore. She is not accustomed to laying on her back as she tends to sleep side-lying. States her hip pain is well- managed with Tylenol. Is agreeable to evaluation and is looking forward to transferring into a seated chair position. Objective: General Observation: IV forearm right upper extremity, catheter, bruising posterior lateral right hip and superior aspect right shoulder Mental Status: Alert and oriented x 3 Pain: 3/10 General low back Vital Signs: Monitor. Nursing ROM: Right Upper Extremity: Glenohumeral joint, elbow, wrist and hand within functional limits Left Upper Extremity: Glenohumeral joint, elbow, wrist and hand within func tional limits Left Lower Extremity: Hip flexion 90 degrees via heel slide active assisted 100 degrees, hip abduction 30 degrees, knee flexion and extension within normal limits, ankle range of motion within normal limits Right Lower Extremity: Patient performs heel slide to 65 degrees of hip flexion. She is able to sit in a chair assuming 80 degrees of hip flexion. Abduction 10 degrees with pain active, knee flexion and extension within normal limits. Ankle range of motion within normal limits. Strength: Right Upper Extremity: 4/5 glenohumeral joint flexion, abduction, elbow flexion and extension. Good perishable fruit inspector Left Upper Extremity: 4/5 glenohumeral joint flexion, abduction, elbow flexion and extension. Good perishable fruit inspector Right Lower Extremity: Unable to perform straight leg raise, hip flexion 3+/5, knee extension 3+/5, knee flexion 4 -/5, ankle 4/5 in all planes Left Lower Extremity: 4/5 throughout hip flexion, abduction, knee flexion and extension and ankle in all planes. Sensation: Intact sensation light touch bilateral lower extremities. Bed Mobility/Transfers: Supine-sit: Head of bed 45 degrees with mod assist x 1 Sit?stand: Min assist x 1 to a front wheel walker Stand?sit: Contact-guard x 1 from a front wheel walker Gait: 10 feet with min assist x 1 with front wheel walker Balance: Static Sitting: Good Dynamic Sitting: Fair Static Standing: Fair Dynamic Standing: Fair Special Tests: Mobility Limitations Standardized Measure [facility] AM-PAC 6 clicks Basic Mobility Inpatient Short Form: Raw Score: 17 Standardized Score: [] CMS Score: 51% Informed Consent/Education: Patient instructed in purpose of PT consult and plan of care. Assessment: Patient is a 83 year old female referred to physical therapy services with the diagnosis of right superior pubic rami fracture. Patient presents with clinical signs and symptoms consistent with above diagnosis, as demonstrated by the following impairment level findings: 1. Decreased strength right lower extremity major muscle groups 2. Impaired standing balance 3. Impaired activity tolerance 4. Fatigue Impairments are contributing to the following functional limitations: AMPAC score 1. Difficulty with ambulation 2. Increased completion time for mobility ADL performance 3. Increased risk for falls. Patient is assessed as a [] Low 83686 X Moderate 97003 [] High 65172 co mplexity based on the following: History: 83-year-old female with past medical history as indicated above Examination: Demonstrates impairments in strength, balance and mobility Presentation: Evolving Decision Makin moderate complexity Goals: Goals X1 week 1. Supine-Sit: Independent 2. Sit-Supine: Independent 3. Sit-Stand: Standby assist to a front wheel walker 4. Stand-Sit: Standby assist from a front wheel walker 5. Bed-Chair: Standby assist with use of front wheel walker 6. Chair-Bed: Standby assist with use of front wheel walker 7. Gait: 200 feet with standby assist with use of front wheel walker 8. Stairs 2 stairs with contact-guard x 1 9. Independent with home exercise program Plan of Care/Treatment Plan: 1-2x/day, 7 days/week x 1 week. Plan of care has been reviewed with the TECHNICAL COMMUNICATOR providing the service under Physical Therapy direction. Initiate Physical Therapy intervention for strengthening, bed mobility, transfers, gait, stairs, balance training, use of assistive device. DISCHARGE RECOMMENDATIONS: [] Home with no services [] [X] Home with services [Home health PT] [] Home with outpatient PT [] [] SNF for continued rehabilitation [] [] Custodial Care [] [] SNF versus LTC based on ability to participate and progress [] TREATMENT CODE/TIME: 25 minutes 735?8:00, 49084 initial evaluation Please sign an return this page within 30 days if you agree with the above POC. Thank you! Physician Signature Date [facility] Dylan Elkins PT, DPT Disclaimer: This note was created using [employer] voice recognition software. It was reviewed for major content. However, there may be multiple small discrepancies and errors due to the voice recognition aspects of the software.
[2023-06-28] MEDS: Vitamins B Comp w/C TAB 1 TAB PO (08:45)
[2023-06-28] MEDS: Cholecalciferol (Vitamin D3) 1,000 UNIT TAB 1000 UNITS PO (08:46)
[2023-06-28] MEDS: Enoxaparin 30 MG/0.3 ML SYR SC (08:47)
[2023-06-28] MEDS: Calcium Carbonate 1.5 GM TAB PO (08:47)
[2023-06-28] MEDS: Aspirin E.C. 81 MG TABEC 162 MG PO (08:47)
[2023-06-28] MEDS: Metoprolol 50 MG TAB PO (08:47)
--- NOTE | 2023-06-28 09:24 | INITIAL_ITS ---
Date of service: 06/28/23 Time of Service: 09:24 Care Management Initial Assmt Initial Assessment REASON FOR HOSPITALIZATION:: fractured pubic ramus PREVIOUS FUNCTIONAL STATUS/SOCIAL/FAMILY SUPPORTS:: Daylin lives in a modular home in [place] with her Ludwig. They have 3 children, 2 daughters who live out of the area and a son who is local. She is independent at baseline and does not receive any community services. CURRENT FUNCTIONAL STATUS:: Daylin was sitting up in a chair when CM met with her. She stated that her pain has been well controlled with Tylenol and that she did well with PT. She denied acute pain with ambulation. PT has recommended HH PT. Daylin is agreeable. ADVANCE DIRECTIVES:: On file. [facility] Has patient been provided with info about the portal/API?: Yes Did the patient sign up for the portal?: No CODE STATUS:: DNR/DNI INSURANCE COVERAGE / FINANCIAL ISSUES:: Medicare BC/[facility] CURRENT HOME/COMMUNITY SERVICES/EQUIPMENT:: none PRIMARY CARE PHYSICIAN:: Kurt Adam POTENTIAL DISCHARGE NEEDS:: follow up with PCP and plan of care PATIENT/FAMILY EDUCATION NEEDS:: Review of discharge instructions, activity, limitations, follow up plan, discuss Ask Me Three TRANSPORTATION:: via private vehicle with PLAN:: Anticipate Daylin will be discharged home when medically cleared by provider. She will follow up with her PCP and plan of care and transport with family. Cm will follow and continue to support discharge needs. 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) Other causes of myelitis (03/19/11) thoracic myelitis on Mofetil Family hx of colon cancer (12/07/13) mom at 83 Nausea without vomiting most likely secondary to medication Osteoporosis Neuromyelitis optica Surgical History History of tonsillectomy and adenoidectomy History of bilateral ligation of fallopian tubes Ligation of fallopian tube Colonoscopy - IV Sedation 2004, 2009 Family History Mother , 83 Colon cancer 70's Essential hypertension Heart disease Stroke Father , 79 Diabetes Heart disease Sister , 77 Essential hypertension Heart disease Maternal Grandfather Cancer Paternal Grandfather Heart disease Maternal Grandmother No problems noted. Paternal Grandmother , 30? Diabetes Son Depression Daughter Diabetes Daughter Depression Sister No problems noted. Social History Smoking/Tobacco Use Status: Never Second Hand Exposure: Yes Smoking risk assessment performed?: Yes Alcohol Intake: current Alcohol type: beer Drug use: Never Substance use type: does not use Caregiver/Support person: No Household members: spouse Housing: house Communication Needs: None Do you need help understanding health information?: Rarely Pets and animals: No Sexually active: No Do you think of yourself as: straight/heterosexual Current gender identity: female What is your relationship status?: How often do you talk on the phone with friends or family?: three or more times per week How often do you get together with friends or relatives?: decline to answer How often do you attend pentecostal or rastafarian services?: 1-3 times per year Do you belong to any clubs or organized social groups?: no Panel score (0-1 are the most socially isolated patients): 2 What type of physical activity do you participate in: none Frequency: does not exercise Sunni/Congregational: Worship Special sunni needs: No Seatbelt use: always Drive intox or ride w/intox test driver: No SDOH(Care Management) Screening Will the Patient Participate in the Screening?: Yes Do you worry about having a steady place to live?: no Problems where you live: no known problems In the past 12 months, have you had to go without electric, gas, oil or water in your home?: yes Have you or anyone in your house had to go without enough food to eat?: no Has lack of transportation kept you from medical appointments or from doing things needed for daily living?: no Has anyone in your support network made you feel unsafe for any reason?: no Health Related Social Needs Health related social needs: material hardship(utilities)(Z59.87)
[2023-06-28 11:33] LABS: Abs Immature Grans 0.03 10^3/uL (0.0-0.06); Absolute Basophil Count 0.04 10^3/uL (0.0-0.2); Absolute Eosinophil Count 0.08 10^3/uL (0.0-0.7); Absolute Lymphocyte Count 0.58 10^3/uL (1.2-3.4); Absolute Monocyte Count 0.65 10^3/uL (0.1-0.8); Absolute Neutrophil Count 7.82 10^3/uL (1.2-6.7); Basophils % 0.4; Eosinophils % 0.9; HCT 31.1 % (36.0-46.0); HGB 10.5 g/dL (11.2-15.7); Immature Grans % 0.3; Lymphocytes % 6.3; MCH 31.3 pg (27.0-33.0); MCHC 33.8 % (32.0-36.0); MCV 93 fL (80-95); Monocytes % 7.1; Platelet Count 276 10^3/uL (130-400); RBC 3.36 10^6/uL (3.93-5.22); RDW 12.1 % (11.7-14.6)
[2023-06-28 11:42] LABS: Anion Gap 7.5 mmol/L (3-11); BUN 13 mg/dL (7-18); CO2 28.5 mmol/L (21.0-32.0); CREATININE 0.7 mg/dL (0.55-1.02); Calcium 9.6 mg/dL (8.5-10.1); Chloride 98 mmol/L (98-107); Estimated GFR 86.83 (mL/min/1.73m2); Glucose 110 mg/dL (74-106); Magnesium 1.6 mg/dL (1.8-2.4); Potassium 4.4 mmol/L (3.5-5.1); Sodium 134 mmol/L (136-145)
[2023-06-28] MEDS: Normal Saline 10 ML VIAL IJ (12:01)
--- NOTE | 2023-06-28 12:47 | W.PM.DS.N ---
Date of service: 06/28/23 Time of Service: 12:47 DS: Diagnosis Discharge Diagnosis (1) Fracture of pubic ramus: Status: Acute (2) Leukocytosis: Status: Acute Asessment and Plan: Resolved (3) Hypokalemia: Status: Acute Asessment and Plan: K 4.1 today (4) Transverse myelitis: Status: Acute (5) Hypertension: Status: Acute (6) Sciatica: Status: Acute (7) Restless legs syndrome: Status: Acute Discharge Plan Disposition Patient Disposition: Home W/Home Health Services Condition: Improving Discharge Details Reason For Visit: Pelvic fracture Admit Date/Time: 06/28/23 04:40 Admit Provider: Andrea Carlisle Attending Provider: Andrea Carlisle Primary Care Provider: Kurt Adam Hospital Course Hospital Course: This 83 years old female patient with past medical history of hypertension on hydrochlorothiazide, 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 She she denied tripping and any loss of consciousness or hitting her head. She also denied any symptoms of pre-syncope, vertigo, chest pain, palpitations or dyspnea at this time. Patient also denied fever, chills or night sweats or new paresthesias. She denies any chest pain, palpitations the patient's after getting up but she felt excruciating pain on the lateral side of the right hip and was unable to tolerate weight bearing. Patient described the pain as a constant achy pain worsening with movement without any radiating to the ipsilateral groin or her lower extremity. Patient reported independent ambulatory function at baseline. In the ED the patient was found to have sustained right superior and inferior pubic ramus fractures with adjacent hematoma. Labs were unremarkable except for leukocytosis mostly due to reactivity, and hypokalemia with potassium level at 3.1 During the stay, the hypokalemia was corrected to 4.1, hyponatremia with Na of 130 corrected to 134 with the infusion of about 700ml of NS 300 ml left to be infused. Hemoglobin and hematocrit were 10.5 and 31.1 not necessitating any blood transfusion, the patient remained hemodynamically stable. Magnesium was 1.6 and magnesium 2 gm IV was infused.Pain was well control with acetaminophen oral scheduled and the home dose regimen of scheduled neurontin.The patient will be discharged on a 5-day course of oral acetaminophen. The patient will have a short course (3 days) of 10 meq of potassium chloride oral daily; further supplementation to be reviewed with PCP. The patient will continue her medicine home regimen for her chronic conditions. The patient was counseled on supplementation her alimentation with daily intake of one banana or one orange.The patient will have f/u BMP and CBC scheduled on 07/01/2023 with result to be communicated to her PCP. Physical therapy recommended home Health with physical therapy. The patient will need to f/u with PCP within a week. Discussion also occurred regarding the need for a DEXA scan and the possibility of receiving for osteoporosis as per further discussion with PCP. Discussed with Dr. Lawson Home Meds and New Rx's Prescriptions: New acetaminophen 325 mg Tablet 650 mg PO Q8H Qty: 30 0RF potassium chloride 10 mEq capsule, extended release 10 meq PO DAILY Qty: 3 0RF Continued hydrochlorothiazide 12.5 mg capsule 12.5 mg PO DAILY Qty: 90 4RF Hold Instructions: d/t electrolyte imbalances. Recheck 05/05/22. AT cholecalciferol (vitamin D3) 25 mcg (1,000 unit) capsule 25 mcg PO DAILY calcium carbonate [Calcium 600] 600 mg calcium (1,500 mg) tablet 600 mg PO DAILY mycophenolate mofetil 500 mg tablet 1,000 mg PO BID Qty: 360 3RF aspirin [Aspir-81] 81 MG tablet,delayed release (DR/EC) 162 mg PO DAILY Rx Instructions: 2 TABS DAILY vitamin B complex 1 EACH capsule 1 cap PO DAILY metoprolol tartrate 50 mg tablet 50 mg PO DAILY Qty: 90 3RF Rx Instructions: Replaces Atenolol gabapentin 600 mg tablet See Rx Instructions .ROUTE .COMPLEX Rx Instructions: Pt currently taking 300 mg in the afternoon, 600 mg at bedtime Discharge Instructions Referrals: Kurt Adam [employer]INE [employer] TECHNICIAN [Primary Care Provider] - Activity:: Activity as Tolerated Equipment/Supplies:: Walker Diet:: As Tolerated Discharge Orders Discharge Orders: Discharge Order (Routine); Ordered 06/28/23 Ordered By: Roxana Canseco Other Ambulatory Orders: Basic Metabolic Panel (Routine) Timeframe: 20230701 Facility: [facility] - Location: Laboratory Outpatient - [facility] Ordered By: Roxana Canseco Complete Blood Count w/Diff (Routine) Timeframe: 20230701 Facility: [facility] - Location: Laboratory Outpatient - [facility] Ordered By: Roxana Canseco DS: Summary Time Spent with Patient providing and/or coordinating discharge services: Greater than 30 minutes Status at Discharge Functional status at discharge: uses cane/walker Overall status at discharge: patient is progressing back to baseline Mental Status: mental status grossly normal Speech and Movement: speech and movement normal Mood: congruent mood Affect: normal affect Quality:SDOH Health Related Social Needs: Health related social needs material hardship Exam Narrative Exam Narrative: Constitutional The patient in bed comfortable and cooperative during the interview. The patient is well groomed without acute distress and has average body habitus HENMT: Head is atraumatic, normocephalic, no lymphadenopathy. Facial structures with normal appearance Eyes: Well aligned, intact ROM Neck: Normal ROM, no meningeal signs Neuro:alert and oriented to self, person, place, time and situation. No neurological focal deficit Resp: Normal respiratory pattern, speaks in full sentences, unlabored breathing, clear lung bilaterally Cardio: regular rhythm, S1, S2, no murmur, capillary refill<3 sec., bilateral radial and dorsalis pedis pulses are positive, palpable GI: Abdomen is not distended, soft and non tender, bowel sounds are present : Negative Costovertebral angle tenderness, no bladder distension Back/spine/Pelvis: No back tenderness, normal alignment Integumentary: No skin lesions or rash except for stable right hip bruise Extremities: strength 5/5 to bilateral lower and upper extremities, 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 Psych Mental Status: mental status grossly normal Speech and Movement: speech and movement normal Mood: congruent mood Affect: normal affect DS: Data Vitals/I&O Vitals and I&O: Vital Signs Temperature 36.7 C 06/28/23 07:42 Temperature Source Tympanic 06/28/23 07:42 Pulse 79 06/28/23 07:42 Pulse Rhythm Regular 06/28/23 08:23 Respiratory Rate 17 06/28/23 07:42 Respiratory Effort Normal, Non-Labored 06/28/23 08:23 Respiratory Depth Normal 06/28/23 08:23 Respiratory Pattern Normal 06/28/23 08:23 Blood Pressure 128/67 06/28/23 07:42 Blood Pressure Position Sitting 06/28/23 00:57 Pulse Oximetry 97 06/28/23 07:42 Oxygen Delivery Method Room Air 06/28/23 07:42 Oxygen Flow Rate 0 06/28/23 07:42 Pain Level 5 06/28/23 05:33 Comment pt states pain only with movement and weight bearing 06/28/23 00:57 Intake & Output 06/27/23 06/28/23 06/28/23 23:59 11:59 23:59 Intake Total 655 / 655 Output Total 300 / 300 Balance -300 / 355 655 / 355 Weight 49.668 kg Intake: IV 655 / 655 Output: Urine 300 / 300 Other: Urine Color Yellow Urine Appearance Clear Stool Size Small Stool Characteristics Soft Brown Voiding Methods Bedside Commode Data Completed and Pending Labs on day of discharge: Labs from last 24 hours 06/28/23 06/28/23 06/28/23 11:15 03:15 02:34 WBC 9.20 16.95 H RBC 3.36 L 3.59 L Hgb 10.5 L 11.5 Hct 31.1 L 33.3 L MCV 93 93 MCH 31.3 32.0 MCHC 33.8 34.5 RDW 12.1 11.9 Plt Count 276 271 MPV 10.0 10.2 Immature Gran % 0.3 0.6 Neutrophils % 85.0 91.3 Lymphocytes % 6.3 2.4 Monocytes % 7.1 5.4 Eosinophils % 0.9 0.1 Basophils % 0.4 0.2 Nucleated RBC % 0.0 0.0 Absolute Neutrophils 7.82 H 15.48 H Absolute Lymphocytes 0.58 L 0.41 L Absolute Monocytes 0.65 0.92 H Absolute Eosinophils 0.08 0.02 Absolute Basophils 0.04 0.03 PT 9.6 INR 1.0 APTT 21.9 L Sodium 134 L 133 L Potassium 4.4 D 3.1 L Chloride 98 95 L Carbon Dioxide 28.5 24.2 Anion Gap 7.5 13.8 H BUN 13 13 Creatinine 0.7 0.6 Est GFR (CKD-EPI 2020) 86.83 90.12 Glucose 110 H 121 H Calcium 9.6 9.4 Magnesium 1.6 L Total Bilirubin 0.5 AST 22 ALT 21 Alkaline Phosphatase 68 Total Protein 6.5 Albumin 3.7 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) Other causes of myelitis (03/19/11) thoracic myelitis on Mofetil Family hx of colon cancer (12/07/13) mom at 83 Nausea without vomiting most likely secondary to medication Osteoporosis Neuromyelitis optica Surgical History History of tonsillectomy and adenoidectomy History of bilateral ligation of fallopian tubes Ligation of fallopian tube Colonoscopy - IV Sedation 2004, 2009 Family History Mother , 83 Colon cancer 70's Essential hypertension Heart disease Stroke Father , 79 Diabetes Heart disease Sister , 77 Essential hypertension Heart disease Maternal Grandfather Cancer Paternal Grandfather Heart disease Maternal Grandmother No problems noted. Paternal Grandmother , 30? Diabetes Son Depression Daughter Diabetes Daughter Depression Sister No problems noted. Social History Smoking/Tobacco Use Status: Never Second Hand Exposure: Yes Smoking risk assessment performed?: Yes Alcohol Intake: current Alcohol type: beer Drug use: Never Substance use type: does not use Caregiver/Support person: No Household members: spouse Housing: house Communication Needs: None Do you need help understanding health information?: Rarely Pets and animals: No Sexually active: No Do you think of yourself as: straight/heterosexual Current gender identity: female What is your relationship status?: How often do you talk on the phone with friends or family?: three or more times per week How often do you get together with friends or relatives?: decline to answer How often do you attend hinduism or latter day services?: 1-3 times per year Do you belong to any clubs or organized social groups?: no Panel score (0-1 are the most socially isolated patients): 2 What type of physical activity do you participate in: none Frequency: does not exercise Sunni/Hoahaoism: Mu-Ism Special sunni needs: No Seatbelt use: always Drive intox or ride w/intox personal driver: No Time Spent with Patient Time Spent with Patient: >85 minutes Time was spent: preparing to see the patient(eg.review tests), obtaining and/or reviewing separately otained hiistory, ordering medications,tests, procedures, referring, communicating with other health home health aide caregiver, indepentently interpreting results, counseling the patient and care coordination
[2023-06-28] MEDS: Gabapentin 300 MG CAP PO (13:36)
[2023-06-28] MEDS: MAGNESIUM SULFATE 2 GM/50 ML BAG IVPB (14:45)
[2023-06-28 15:30] VITALS: BP 146/53; PULSE 78; RESP 16; TEMP 37.1; O2SAT 97
--- NOTE | 2023-06-28 15:55 | PDOC.CMDIS ---
Date of service: 06/28/23 Time of Service: 15:55 LACE Index Scoring Tool Questions: Length of Stay (in days): 1 Was the patient admitted via the E.D.?: Yes E.D. Visits: 1 Answers: Total Score: 5 Risk of Readmission: Low Risk Care Management Discharge Plan Reason for Hospitalization: fractured pubic ramus Discharge Plan: Daylin will be discharged home with new home health orders for PT. She will follow up with her PCP and plan of care and transport with family. Patient/Family Education Needs: Review of discharge instructions, activity, limitations, follow up plan, discuss Ask Me Three Services Needed at Discharge: Home Health Care Services SDOH Health Related Social Needs: Health related social needs material hardship Health related social needs: material hardship(utilities)(Z59.87)
--- NOTE | 2023-06-28 16:13 | PDOC.HHF2F ---
Home Health Referral Home Health Orders Clinical synopsis of why skilled professionals are needed: Patient is a 83 year old female referred to physical therapy services with the diagnosis of right inferior and superior pubic rami fracture. Decreased strength right lower extremity major muscle groups Impaired standing balance Impaired activity tolerance Fatigue Difficulty with ambulation Increased completion time for mobility ADL performance Increased risk for falls. Medical diagnosis necessitation home health referral: right inferior and superior pubic rami fracture Physical Therapist: Check all that apply Increase strength & endurance for safe mobility at home: Ordered To design/establish home maintenance program: Ordered Fall reduction therapy program for patient with history of frequent falls: Ordered Home safety evaluation and teaching/gait training including stair management (if applicable): Ordered Home Bound Status Requires the aid of supportive device (check all that apply): Walker Encounter Date and Reason: I certify that a FTF encounter for this patient was performed on June 28, 2023 and that such encounter was related to the primary reason the patient requires home health services. The encounter was conducted in the following manner: By me as the certifying physician, FILLER MACHINE OPERATOR, PA or By an inpatient physician, FILLER MACHINE OPERATOR or PA during an inpatient stay who communicated findings to me, Certification And Authentication I certify that I composed the above information based on my clinical judgment relating to this patient's medical condition and, if applicable, clinical findings communicated to me by the NPP or inpatient physician who performed the FTF encounter. Name of Provider that will be monitoring home health services: Kurt Adam
== END 2023-06-28 16:53 | disposition home health service (06) | DRG 536 ==
LOC: ER 04:57 → MS 05:24
PROVIDERS: Nurse Practitioner Acute Care; Admitting Provider Student in an Organized Health Care Education/Training Program; Emergency Provider Emergency Medicine; PCP Nurse Practitioner Family; Visit Provider Student in an Organized Health Care Education/Training Program
DX: S32.511A Fracture of superior rim of right pubis, initial encounter for closed fracture (principal); D84.821 Immunodeficiency due to drugs; E87.1 Hypo-osmolality and hyponatremia; S32.591A Other specified fracture of right pubis, initial encounter for closed fracture; E87.6 Hypokalemia; M54.32 Sciatica, left side; I10 Essential (primary) hypertension; Z66 Do not resuscitate; G25.81 Restless legs syndrome; Z79.69 Long term (current) use of other immunomodulators and immunosuppressants; W19.XXXA Unspecified fall, initial encounter; M81.0 Age-related osteoporosis without current pathological fracture; Z80.0 Family history of malignant neoplasm of digestive organs; Z86.61 Personal history of infections of the central nervous system
CPT/HCPCS: 00123; 36415; 73552; 80048; 80053; 97162; 99285; 72170; 72192; 73030; 83735; 85025; 85610; 85730; 99235; J1650; J3475; J7517

== ENCOUNTER 2023-08-10 03:38 | Outpatient (CLI) | payer MEDICARE, BC, SELFPAY ==
[2023-08-10 12:27] LABS: Abs Immature Grans 0.01 10^3/uL (0.0-0.06); Absolute Basophil Count 0.04 10^3/uL (0.0-0.2); Absolute Lymphocyte Count 0.88 10^3/uL (1.2-3.4); Absolute Monocyte Count 0.58 10^3/uL (0.1-0.8); Basophils % 0.7; Eosinophils % 3.3; HCT 33.2 % (36.0-46.0); HGB 10.8 g/dL (11.2-15.7); Immature Grans % 0.2; Lymphocytes % 14.4; MCHC 32.5 % (32.0-36.0); MCV 95 fL (80-95); MPV 10.5 fL (8.0-11.0); Monocytes % 9.5; Neutrophils % 71.9; Platelet Count 341 10^3/uL (130-400); RBC 3.48 10^6/uL (3.93-5.22); RDW 12.1 % (11.7-14.6); RDW-SD 42.5 fL; WBC 6.11 10^3/uL (4.4-10.8)
[2023-08-10 16:05] LABS: Anion Gap 7.1 mmol/L (3-11); BUN 11 mg/dL (7-18); CO2 30.9 mmol/L (21.0-32.0); CREATININE 0.8 mg/dL (0.55-1.02); Calcium 9.9 mg/dL (8.5-10.1); Chloride 102 mmol/L (98-107); Estimated GFR 73.98 (mL/min/1.73m2); Glucose 93 mg/dL (74-106); Potassium 3.5 mmol/L (3.5-5.1); Sodium 140 mmol/L (136-145)
== END 2023-08-10 03:39 | disposition home or self-care (01) ==
LOC: LOS 03:38
PROVIDERS: PCP Nurse Practitioner Family; Visit Provider Nurse Practitioner Acute Care
DX: I10 Essential (primary) hypertension (principal); D72.829 Elevated white blood cell count, unspecified; E87.6 Hypokalemia
CPT/HCPCS: 36415; 80048; 85025

== ENCOUNTER → 2024-04-13 10:47 | Outpatient (BNVA) | payer MEDICARE, BC, SELFPAY | PROVIDERS: PCP Nurse Practitioner Family; Visit Provider Psychiatry & Neurology Neurology | DX: G36.0 Neuromyelitis optica [Devic] (principal); G25.81 Restless legs syndrome | CPT/HCPCS: 99214 ==

== ENCOUNTER 2024-05-03 02:32 | Outpatient (CLI) | payer MEDICARE, BC, SELFPAY ==
[2024-05-03 12:32] LABS: Abs Immature Grans 0.01 10^3/uL (0.0-0.06); Absolute Basophil Count 0.05 10^3/uL (0.0-0.2); Absolute Eosinophil Count 0.18 10^3/uL (0.0-0.7); Absolute Lymphocyte Count 1.14 10^3/uL (1.2-3.4); Absolute Neutrophil Count 3.94 10^3/uL (1.2-6.7); Basophils % 0.9 %; Eosinophils % 3.1 %; HCT 38.6 % (36.0-46.0); HGB 12.8 g/dL (11.2-15.7); Immature Grans % 0.2 %; Lymphocytes % 19.6 %; MCH 31.5 pg (27.0-33.0); MCHC 33.2 % (32.0-36.0); MCV 95 fL (80-95); MPV 9.9 fL (8.0-11.0); Monocytes % 8.6 %; Neutrophils % 67.6 %; Platelet Count 388 10^3/uL (130-400); RBC 4.06 10^6/uL (3.93-5.22); RDW 12.4 % (11.7-14.6); RDW-SD 42.7 fL; WBC 5.82 10^3/uL (4.4-10.8)
[2024-05-03 13:00] LABS: ALT 17 U/L (14-59); AST 16 U/L (15-37); Albumin 4.1 g/dL (3.4-5.0); Alkaline Phosphatase 101 U/L (46-116); Anion Gap 6.6 mmol/L (3-11); BUN 7 mg/dL (7-18); Bilirubin, Total 0.31 mg/dL (0.2-1.0); CO2 33.4 mmol/L (21.0-32.0); CREATININE 0.7 mg/dL (0.55-1.02); Calcium 9.8 mg/dL (8.5-10.1); Chloride 96 mmol/L (98-107); Estimated GFR 86.83 (mL/min/1.73m2); Glucose 89 mg/dL (74-106); Potassium 3.6 mmol/L (3.5-5.1); Sodium 136 mmol/L (136-145); Total Protein 7.4 g/dL (6.4-8.2)
== END 2024-05-03 02:33 | disposition home or self-care (01) ==
LOC: LOS 02:33
PROVIDERS: PCP Nurse Practitioner Family; Visit Provider Psychiatry & Neurology Neurology
DX: G37.3 Acute transverse myelitis in demyelinating disease of central nervous system (principal)
CPT/HCPCS: 36415; 80053; 85025

== ENCOUNTER 2024-11-09 05:10 | Outpatient (CLI) | payer MEDICARE, BC, SELFPAY ==
[2024-11-09 12:53] LABS: BUN 9 mg/dL (7-18); CREATININE 0.8 mg/dL (0.55-1.02); Calcium 8.9 mg/dL (8.5-10.1); Calculated LDL 101 mg/dL (<100); Chloride 97 mmol/L (98-107); Cholesterol 198 mg/dL (<200); Estimated GFR 73.52 (mL/min/1.73m2); Glucose 90 mg/dL (74-106); HDL Cholesterol 69 mg/dL (>or=50); Potassium 3.7 mmol/L (3.5-5.1); Sodium 135 mmol/L (136-145); Triglyceride 140 mg/dL (<150)
== END 2024-11-09 05:11 | disposition home or self-care (01) ==
LOC: LOS 05:10
PROVIDERS: PCP Nurse Practitioner Family; Visit Provider Nurse Practitioner Family
DX: Z13.1 Encounter for screening for diabetes mellitus (principal); Z13.220 Encounter for screening for lipoid disorders
CPT/HCPCS: 36415; 80048; 80061

== ENCOUNTER → 2025-04-24 15:21 | Outpatient (BNVA) | payer MEDICARE, BC, SELFPAY | PROVIDERS: PCP Nurse Practitioner Family; Visit Provider Psychiatry & Neurology Neurology | DX: G36.0 Neuromyelitis optica [Devic] (principal); G25.81 Restless legs syndrome; I10 Essential (primary) hypertension | CPT/HCPCS: 99214 ==